=== PATIENT | female | born 1995 | race Caucasian/White ===

== ENCOUNTER 2017-05-19 19:55 | Emergency (ER) | payer OTHER ==
--- NOTE | 2017-05-19 20:03 | EDPHY ---
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 Since returning she has had persistent abdominal cramping along with diarrhea. She was having loose watery stools 5-6 times daily but today had only 2 stools that were loose, not liquid. She has not had bloody diarrhea. She has been evaluated twice at [facility]. She provided a stool sample this week and was told that she does not have parasites. She is not sure what tests were run on the stool sample. She took a Renew Life parasite treatment that consisted of a pill and a tincture that was mixed with liquid. She took this for 5 or 6 days but stopped it because she was having no improvement in her symptoms. The only other treatments she has tried are Rolaids and Midol, both of which she began today. She notes that the pain is worse at night. She describes it as a cramping pain primarily in the mid abdomen but with some extension into the left upper abdomen and the lower abdomen. She also notes aching across her lower and mid back that has been present for the last 4-5 days. Occasionally there is a sharper component to the discomfort. She has had some chills. Earlier in the week she had nausea but no vomiting. She denies dysuria, urgency or frequency. Last menstrual period was April 25. She is not sexually active. She does not use control. REVIEW OF SYSTEMS: A ten point review of systems was performed and is negative with the exception of the items mentioned in the HPI. 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 She eats of Whittaker diet. She does not use tobacco products. General Appearance: Alert. Vital signs reviewed. Eyes: Pupils equal and round, no conjunctival injection, no discharge. Anicteric. ENT, Mouth: Mucous membranes are moist, no oropharyngeal erythema or edema. Neck: No lymphadenopathy, supple. Respiratory: Lungs are clear to auscultation; no wheezes, rales, or rhonchi. Cardiovascular: Regular rate and rhythm; no murmur, rub, or gallop. Gastrointestinal: Abdomen is soft and mildly tender in the periumbilical region , no guarding, no masses or organomegaly, bowel sounds normal. Skin: Warm and dry, no rashes on exposed skin, normal color. Back: Nontender to palpation over the thoracolumbar spine. No CVAT. Extremities: No lower extremity edema, no calf tenderness or swelling. Neurological: Alert and oriented. Moving all four extremities easily and equally. Psychiatric: Normal affect. Constitutional: Initial Vital Signs Temperature (C) 36.6 C 05/19/17 20:00 Heart Rate 61 05/19/17 20:00 Respiratory Rate 16 05/19/17 20:00 Blood Pressure 112/72 05/19/17 20:00 O2 Sat (%) 96 05/19/17 20:00 O2 Delivery Mode Room Air Allergies/Adverse Reactions: No Known Allergies Allergy (Unverified 05/19/17 20:04) Home Medications: Medication Instructions Recorded Dicyclomine [Bentyl 20 MG (*)] 20 mg PO QID #20 tab 05/19/17 Medical Decision Making ED Course/Re-evaluation: 2 weeks of intermittent diarrhea and crampy abdominal pain since returning from [place]. She has been undergoing an evaluation at the [facility] but comes tonight because of persistent crampy abdominal pain that is severe enough to bring her to tears. She has not taken any medication for this other than Midol and Rolaids. She had a stool sample done earlier this week that was reportedly negative, although she is not certain what tests were run. Blood was drawn today but she does not know the results. She was referred to Gastroenterology today. In the emergency department she is given a Bentyl. I am repeating some of the blood work. On reexamination at approximately 9:00 p.m. She is sitting up and states that she feels somewhat better. Abdomen is soft with some mild diffuse abdominal tenderness, no peritoneal signs. I do not suspect a surgical abdomen or bowel obstruction. She has not had diarrheal stool in the emergency department. I reviewed her labs. White blood cell count is elevated at over 12,000. Urinalysis is negative. She is not . Chemistries are normal. She is not febrile. She does not appear dehydrated/hypovolemic. I am recommending some symptomatic treatments including Bentyl, Tylenol and/or ibuprofen, and Vicodin to use on an as-needed basis at night when the pain seems to be worse. She is reluctant to use the Vicodin but agreed to take a prepack. I reviewed the danger signs that should prompt her to be re-evaluated. She is going to follow up at [facility] and also with Gastroenterology. She has been given a Gastroenterology referral by the [facility]. Differential Diagnosis: Abdominal pain including but not limited to traveler's or other diarrhea (viral , bacterial, or parasitic), inflammatory bowel disease, irritable bowel, ovarian cyst, ovarian torsion, , appendicitis, and urinary tract infection. - Data Points Laboratory Results: Laboratory Results 05/19/17 20:30 05/19/17 20:30 05/19/17 05/19/17 05/19/17 20:30 20:30 20:30 WBC RBC Hgb Hct MCV MCH MCHC RDW Plt Count MPV Neut % (Auto) Lymph % (Auto) [place] % (Auto) Eos % (Auto) Baso % (Auto) Nucleat RBC Rel Count Absolute Neuts (auto) Absolute Lymphs (auto) Absolute Monos (auto) Absolute Eos (auto) Absolute Basos (auto) Absolute Nucleated RBC Immature Gran % Seg Neutrophils % Band Neutrophils % Lymphocytes % Monocytes % Eosinophils % Basophils % Immature Gran # Absolute Seg Neuts Absolute Band Neuts Absolute Lymphocytes Absolute Monocytes Absolute Eosinophils Absolute Basophils RBC/WBC/PLT Morphology Atypical Lymphocytes Platelet Estimate Smear Review By Sodium 141 mEq/L mEq/L (135-145) Potassium 3.9 mEq/L mEq/L (3.5-5.2) Chloride 103 mEq/L mEq/L (97-110) Carbon Dioxide 27 mEq/l mEq/l (22-31) Anion Gap 11 mEq/L mEq/L (8-16) BUN 7 mg/dL mg/dL (7-23) Creatinine 0.6 mg/dL mg/dL (0.6-1.0) Estimated GFR > 60 Glucose 97 mg/dL mg/dL (70-100) Calcium 9.5 mg/dL mg/dL (8.5-10.4) Beta HCG, Qual NEGATIVE Urine Color YELLOW Urine Appearance CLEAR Urine pH 8.0 H (5.0-7.5) Ur Specific [place] 1.010 (1.002-1.030) Urine Protein NEGATIVE (NEGATIVE) Urine Ketones NEGATIVE (NEGATIVE) Urine Blood NEGATIVE (NEGATIVE) Urine Nitrate NEGATIVE (NEGATIVE) Urine Bilirubin NEGATIVE (NEGATIVE) Urine Urobilinogen 0.2 EU EU (0.2-1.0) Ur Leukocyte Esterase NEGATIVE (NEGATIVE) Urine Glucose NEGATIVE (NEGATIVE) 05/19/17 20:30 WBC 12.34 10^3/uL H 10^3/uL (3.80-9.50) RBC 4.32 10^6/uL 10^6/uL (4.18-5.33) Hgb 13.5 g/dL g/dL (12.6-16.3) Hct 40.3 % % (38.0-47.0) MCV 93.3 fL fL (81.5-99.8) MCH 31.3 pg pg (27.9-34.1) MCHC 33.5 g/dL g/dL (32.4-36.7) RDW 12.5 % % (11.5-15.2) Plt Count 232 10^3/uL 10^3/uL (150-400) MPV 9.4 fL fL (8.7-11.7) Neut % (Auto) Not Reported Lymph % (Auto) Not Reported [place] % (Auto) Not Reported Eos % (Auto) Not Reported Baso % (Auto) Not Reported Nucleat RBC Rel Count 0.0 % % (0.0-0.2) Absolute Neuts (auto) Not Reported Absolute Lymphs (auto) Not Reported Absolute Monos (auto) Not Reported Absolute Eos (auto) Not Reported Absolute Basos (auto) Not Reported Absolute Nucleated RBC 0.00 10^3/uL 10^3/uL (0-0.01) Immature Gran % Not Reported Seg Neutrophils % 16 % % Band Neutrophils % 1 % % Lymphocytes % 26 % % Monocytes % 7 % % Eosinophils % 49 % % Basophils % 1 % % Immature Gran # Not Reported Absolute Seg Neuts 2.0 K/MM3 K/MM3 (1.8-7) Absolute Band Neuts 0.1 K/MM3 K/MM3 (0-0.7) Absolute Lymphocytes 3.2 K/mm3 K/mm3 (1.0-4.8) Absolute Monocytes 0.9 K/mm3 H K/mm3 (0-0.8) Absolute Eosinophils 6.0 K/mm3 H K/mm3 (0-0.5) Absolute Basophils 0.1 K/mm3 K/mm3 (0-0.2) RBC/WBC/PLT Morphology NORMAL (NORMAL) Atypical Lymphocytes 1+ H Platelet Estimate ADEQUATE (ADEQ) Smear Review By Pending Sodium Potassium Chloride Carbon Dioxide Anion Gap BUN Creatinine Estimated GFR Glucose Calcium Beta HCG, Qual Urine Color Urine Appearance Urine pH Ur Specific [place] Urine Protein Urine Ketones Urine Blood Urine Nitrate Urine Bilirubin Urine Urobilinogen Ur Leukocyte Esterase Urine Glucose Medications Given: Discontinued Medications Dicyclomine HCl (Bentyl) 20 mg PO EDNOW ONE Stop: 05/19/17 20:23 Last Admin: 05/19/17 20:29 Dose: 20 mg Departure - Departure Disposition: Home, Routine, Self-Care Clinical Impression: Abdominal pain Qualifiers: Abdominal location: generalized Qualified Code(s): R10.84 - Generalized abdominal pain Diarrhea Qualifiers: Diarrhea type: presumed infectious Qualified Code(s): R19.7 - Diarrhea, unspecified Condition: Good Instructions: Loperamide (By mouth), Traveler's Diarrhea (ED), Abdominal Pain ( ED) Additional Instructions: Take the Bentyl 20 mg four times daily for the next couple of days. Take ibuprofen 400 mg every six hours for pain. Take this with a bit of food. You can also take tylenol (acetominophen) 650 mg every four hours for pain or for fever/chills. If you have it shaking chill I recommend taking a dose of Tylenol. If you have severe pain, try the [place] (vicodin). Each [place] contains 325 mg of tylenol. Keep track of all the tylenol you take and do not take more than 3000 mg in a 24 hour time period. If you have diarrheal (watery liquid) stools take Imodium. Follow up with gastroenterology as advised. If you develop persistent fever, worsening or intractable abdominal pain, vomiting, frequent diarrhea or bloody diarrhea--you should be re-evaluated. Referrals: DIANN Winn,. [Clinic] - As per Instructions Prescriptions: Dicyclomine [Bentyl 20 MG (*)] 20 mg PO QID #20 tab
[2017-05-19] MEDS ORDERED: DICYCLOMINE 10 MG CAP PO ONE (20:22)
[2017-05-19 20:35] LABS: PLATELET COUNT 232 10^3/uL (150-400)
[2017-05-19] MEDS ORDERED: HYDROCOD/APAP 5/325 PREPACK#6 BTL TAKEHOME ONE (21:14)
[2017-05-19 21:21] VITALS: BP 94/59
== END 2017-05-19 21:33 | disposition home or self-care (01) ==
LOC: CED 19:55
DX: R19.7 Diarrhea, unspecified (principal); R10.84 Generalized abdominal pain
CPT/HCPCS: 80048-PO; 81003-PO; 84703-PO; 85025-PO

== ENCOUNTER 2017-05-26 18:48 | Emergency (ER) | payer OTHER ==
--- NOTE | 2017-05-26 19:08 | EDPHY ---
H & P Time Seen by Provider: 05/26/17 18:58 HPI/ROS: CHIEF COMPLAINT: Abdominal pain, diarrhea HISTORY OF PRESENT ILLNESS: 21-year-old female presents to the emergency department with abdominal pain and diarrhea. Patient was in [place] 3 weeks ago and on the last a she developed some cramping abdominal pain and diarrhea. This continued and she was seen in the emergency department 1 week ago. She apparently had already had stool testing done at [facility] which was negative. She was given Bentyl for the cramping which helped and her symptoms did improve for a few days but then they came back yesterday. She had 3 episodes of watery diarrhea yesterday. No blood in her stool. No melena. The patient tried following up with Gastroenterology, however she was not able to get an appointment until June. She denies headache. Denies urinary symptoms. She states that the pain is not that bad right now. She states that when she does have abdominal pain is more in the epigastric area. She has been trying to eat normally. She tried taking some Rolaids. REVIEW OF SYSTEMS: Constitutional: No fever, no chills. Eyes: No double or blurry vision. ENT: No sore throat. Respiratory: No cough, no shortness of breath. Cardiac: No chest pain. Gastrointestinal: Abdominal pain, diarrhea. No vomiting. Genitourinary: No dysuria. Musculoskeletal: No neck or back pain. Skin: No rashes. Neurological: No headache. Past Medical/Surgical History: IBS Social History: [employer] student from [place] Smoking Status: Never smoked Physical Exam: General Appearance: Alert, no distress. Afebrile. Nontoxic appearing. Vital signs are stable. Eyes: Pupils equal and round. Extraocular motions are all intact. ENT: Mouth: Mucous membranes moist. Respiratory: No wheezing, rhonchi, or rales, lungs are clear to auscultation. Cardiovascular: Regular rate and rhythm. Gastrointestinal: Abdomen is soft and nontender, no masses, no rebound or guarding, bowel sounds normal. No CVA tenderness bilaterally. Neurological: Alert and oriented x 3, cranial nerves II through XII grossly intact Skin: Warm and dry, no rashes. Musculoskeletal: Nontender to palpate along the cervical, thoracic or lumbar spine. Neck is supple. Extremities: Full range of motion and no peripheral edema. Psychiatric: Patient is oriented X 3, there is no agitation. Constitutional: Initial Vital Signs Temperature (C) 36.7 C 05/26/17 18:50 Heart Rate 66 05/26/17 18:50 Respiratory Rate 17 05/26/17 18:50 Blood Pressure 105/65 05/26/17 18:50 O2 Sat (%) 97 05/26/17 18:50 O2 Delivery Mode Room Air Allergies/Adverse Reactions: No Known Allergies Allergy (Verified 05/26/17 18:49) Home Medications: Medication Instructions Recorded Dicyclomine [Bentyl 20 MG (*)] 20 mg PO QID #20 tab 05/19/17 Ciprofloxacin [Cipro 500 mg] 500 mg PO BID 3 Days #6 tab 05/26/17 Dicyclomine [Bentyl] 20 mg PO QID #5 tab 05/26/17 Medical Decision Making ED Course/Re-evaluation: Clinically I do not think this patient has an acute abdomen. I do not think imaging studies are indicated. I do not think blood work needs to be repeated. The patient reports foreign travel to [place] now with abdominal cramping and continued diarrhea. The case was discussed with Dr. Mejias, secondary supervising physician, who did not directly evaluate the patient but agrees with treatment and plan. Patient was unable to provide stool specimen while she is in the emergency department. She was sent with a stool collection kit as well as an order for GI pathogen culture. I also encouraged her to call [facility] to schedule appointment to tell them that she has an ER follow-up appointment. I also treatment of ciprofloxacin 500 mg twice daily for 3 days given her foreign travel and continued ongoing diarrhea. The patient agreed with a prescription. She was given black box warning of tendinopathy. Patient was also given a refill of her Bentyl. She was told to return to the emergency department if she developed bloody diarrhea, abdominal pain, fever, or if she felt worse in any way. Differential Diagnosis: Including but not limited to infectious diarrhea, colitis, irritable bowel syndrome, GERD, peptic ulcer disease - Data Points Medications Given: Discontinued Medications Ciprofloxacin (Cipro) 500 mg PO EDNOW ONE PRN Reason: Protocol Stop: 05/26/17 20:22 Last Admin: 05/26/17 20:27 Dose: 500 mg Departure - Departure Disposition: Home, Routine, Self-Care Clinical Impression: Abdominal pain Qualifiers: Abdominal location: unspecified location Qualified Code(s): R10.9 - Unspecified abdominal pain Diarrhea Qualifiers: Diarrhea type: unspecified type Qualified Code(s): R19.7 - Diarrhea, unspecified Condition: Good Instructions: Acute Diarrhea (ED), Acute Abdominal Pain (ED) Additional Instructions: Abdominal Pain: Return to the Emergency Department immediately for increasing pain, fever, vomiting, or if not completely better in 8-12 hours. Cipro 500mg twice daily for 3 days. You may continue Bentyl as needed for abdominal cramping. Bring stool specimen back aggie to the lab. Call [phone] for the results of your stool culture in 48 hr. Call to arrange follow-up appointment with street cleaner on-call. When you call to arrange the appointment, tell them that you were seen in the emergency department twice and told to be seen for follow-up. Referrals: Jerrod Lundberg MD [Medical Doctor] - As per Instructions (Per Diem Clerk on- call) Prescriptions: Ciprofloxacin [Cipro 500 mg] 500 mg PO BID 3 Days #6 tab Dicyclomine [Bentyl] 20 mg PO QID #5 tab
[2017-05-26] MEDS ORDERED: CIPROFLOXACIN 500 MG TAB PO ONE (20:21)
[2017-05-26 20:32] VITALS: BP 116/69
== END 2017-05-26 20:32 | disposition home or self-care (01) ==
DX: R10.9 Unspecified abdominal pain (principal); R19.7 Diarrhea, unspecified